=== PATIENT | male | born 1945 | race Caucasian/White ===

== ENCOUNTER 2021-01-18 10:45 | Emergency (ER) | payer BC ==
[~2021-01-18] VITALS: Ht 190.5 cm; Wt 124.7 kg
[2021-01-18] MEDS ORDERED: ADULT ASPIRIN R81 MG PO (11:20)
[2021-01-18] MEDS ORDERED: AZELASTIN-FLUTI23 GM NAS (11:21)
[2021-01-18] MEDS ORDERED: FINASTERIDE5 MG PO (13:34)
[2021-01-18] MEDS ORDERED: ELIQUIS5 MG PO (13:34)
[2021-01-18] MEDS ORDERED: LEVOTHYROXINE112 MCG PO (13:34)
[2021-01-18] MEDS ORDERED: PROPAFENONE HC225 M1 PO (13:35)
[2021-01-18] MEDS ORDERED: LOVASTATIN40 MG PO (13:35)
--- NOTE | 2021-01-19 13:17 | EKG ---
[facility] [address] [facility] [place], [place] [address] Signed Sinus tachycardia Otherwise normal ECG No previous ECGs available Confirmed by TROY ORTIZ DO ([id number]) on 01/19/2021 1:17:04 PM Electronically Signed By: TROY ORTIZ DO 01/19/21 1317 PATIENT NAME: MARTA HERNÁNDEZ Electrocardiogram DATE OF : 47 PHYSICIAN: TROY ORTIZ DO REPORT #: [id number] REPORT IS CONFIDENTIAL AND NOT TO BE RELEASED WITHOUT AUTHORIZATION
--- NOTE | 2021-01-19 13:18 | EKG ---
[facility] [address] [facility] [place] [address] Signed Sinus rhythm with premature atrial complexes Otherwise normal ECG When compared with ECG of 18-JAN-2021 11:00, (Unconfirmed) premature atrial complexes are now present Vent. rate has decreased BY 61 BPM Confirmed by TROY ORTIZ DO ([id number]) on 01/19/2021 1:18:19 PM Electronically Signed By: TROY ORTIZ DO 01/19/21 1318 PATIENT NAME: MARTA HERNÁNDEZ DAVID Electrocardiogram DATE OF : 47 PHYSICIAN: TROY ORTIZ DO REPORT #: [id number] REPORT IS CONFIDENTIAL AND NOT TO BE RELEASED WITHOUT AUTHORIZATION
== END 2021-01-18 18:05 | disposition home or self-care (01) ==
LOC: ED 10:45
DX: I48.91 Unspecified atrial fibrillation (principal); E03.9 Hypothyroidism, unspecified; E78.00 Pure hypercholesterolemia, unspecified; Z88.0 Allergy status to penicillin; Z88.1 Allergy status to other antibiotic agents; Z88.5 Allergy status to narcotic agent; Z88.8 Allergy status to other drugs, medicaments and biological substances; Z79.899 Other long term (current) drug therapy; Z79.82 Long term (current) use of aspirin
CPT/HCPCS: 71045; 80048; 81001; 83735; 84443; 84484; 85025; 92960; 93005; 93010; 99285-25; C9803; J0153; J7030; U0003